=== PATIENT | male | born 1970 | race Caucasian/White ===

== ENCOUNTER 2018-04-14 06:03 | Inpatient (IN) ==
[2018-04-14] MEDS ORDERED: Albuterol 2.5 MG/3 ML NEBULIZER IH ONE (06:52)
[2018-04-14] MEDS ORDERED: Albuterol 2.5 MG/3 ML NEBULIZER ONE (06:57)
[2018-04-14] MEDS ORDERED: Ringers Solution, Lactated 1,000 ML IVC SCH ×2 (07:00→11:51)
[2018-04-14] MEDS ORDERED: Lidocaine -MPF 2% 2 ML VIAL ONE (07:16)
[2018-04-14] MEDS ORDERED: Dexamethasone 4 MG/ML VIAL ONE (07:16)
[2018-04-14] MEDS ORDERED: Ondansetron 4 MG/2 ML VIAL ONE (07:16)
[2018-04-14] MEDS ORDERED: Lidocaine -MPF 4% 5 ML AMPUL ONE (07:16)
[2018-04-14] MEDS ORDERED: *HR* Rocuronium Bromide 50 MG/5 ML VIAL ONE (07:16)
[2018-04-14] MEDS ORDERED: *HR* Midazolam HCl 2 MG/2 ML VIAL ONE (07:20)
[2018-04-14] MEDS ORDERED: *HR* FentaNYL (PF) 100 MCG/2 ML VIAL ONE (07:20)
[2018-04-14] MEDS ORDERED: *HR* Propofol 200 MG/20 ML VIAL IVP ONE (07:21)
[2018-04-14] MEDS ORDERED: *HR* Remifentanil 1 MG VIAL IVP ONE (08:01)
--- NOTE | 2018-04-14 08:02 | History & Physical Report ---
Date of Encounter: 04/14/18 Time of Encounter: 08:01 24 Hour HP Update - Instructions Instructions: If the History and Physical is less than 30 days old and was completed prior to A.M. admission and or procedure and has NOT been updated on calendar day of procedure please complete this update prior to performing procedure. - Update Patient reports changes in Medical Condition: No Changes in examination, assessment, or condition: No Changes in Medication: No Preop tests/diagnostics Reviewed: Yes Pre-Op MRSA Screen: Positive, Vancomycin for Prophylaxis Surgery Remains Indicated: Yes Consent for Planned Operative Procedure(s) Verified: Yes - Pre-Operative Checklist Preoperative Checklist Indicated: No Prophylactic Antibiotic Ordered: Yes Home Medications Include Beta Maday: No Beta Maday Taken Today (Day of Surgery): No Beta Maday Taken Yesterday (Day Prior to Surgery): No Is VTE Prophylaxis Indicated?: Yes
--- NOTE | 2018-04-14 08:04 | Anesthesia Evaluation PreOp ---
Date of Encounter: 04/14/18 Time of Encounter: 08:02 - Past History Planned Operation: PLIF L4-5 Cardiac History: Denies any Significant Hx Pulmonary History: Smoker (30+ years), Snore IN STORE DEMONSTRATOR History: Other (chronic back pain) Other Medical History: Denies Any Significant HX Anesthesia History: No Prior Anesthetic Complications, Past Anesthesia Alcohol Use: none Drug use: none Medications and Allergies Acetaminophen [Tylenol] 1,000 mg PO Q6HR PRN 04/14/18 [History] Allergy/AdvReac Type Severity Reaction Status Date / Time No Known Allergies Allergy Verified 04/14/18 07:02 - Meds/Allergy Pre-op Review Medications Reviewed: Yes Allergies Reviewed: Yes Beta Blockers on Current Med List: No Anesthesia Results - Labs Laboratory Tests 04/07/18 04/07/18 04/07/18 11:00 11:00 11:00 WBC 8.9 Hgb 14.4 Hct 43.0 Plt Count 340 PT 12.6 H INR 1.1 APTT 31.6 Sodium 139 Potassium 4.1 BUN 6 Creatinine 0.83 Anesthesia Exam O2 Sat Height 1.78 m Height 1.78 m Weight 72.575 kg Weight 72.575 kg O2 Sat by Pulse Oximetry 97 O2 Sat by Pulse Oximetry 97 Vital Signs Temp Pulse Resp BP Pulse Ox 97.7 F 74 18 123/62 97 04/14/18 06:20 04/14/18 06:20 04/14/18 06:20 04/14/18 06:20 04/14/18 06:20 Height: 5'10" Weight: 160 lbs NPO (# of Hours): 8 Pain Scale: 8 (back) Pain Scale Used: Numeric (1 - 10) - HEENT Pupil (Motor): EOMI Mallampati: II Teeth: Normal (chipped right upper molar) Oral Opening: Greater than 3 - IN STORE DEMONSTRATOR LOC: Oriented IN STORE DEMONSTRATOR Motor: Normal RUE, Normal LUE, Normal LLE, Normal Face, Deficit RLE IN STORE DEMONSTRATOR Sensory: Normal: RUE, LUE, LLE, Face, Deficit: RLE - Cardiac Rhythm: Regular Murmur: None - Pulmonary Breath Sounds: bilateral Clear Respiratory Effort: Symmetrical Anesthesia Assess/Plan ASA Score: 2 Level of consciousness: Cooperative, Oriented, Tranquil Anesthetic Plan: General Monitoring Plan: Standard Monitors Recovery Plan: PACU
[2018-04-14] MEDS ORDERED: Bacitracin 50,000 UNIT, Polymyxin B Sulfate 500,000 UNIT, Sodium Chloride IRRigation 1,... IR ONE (08:15)
[2018-04-14] MEDS ORDERED: *HR* OxyCODONE Immed Rel 5 MG TABLET PO PRN (08:16)
[2018-04-14] MEDS ORDERED: Clindamycin 900 MG/50 ML 900 MG/50 ML IV.SOLN IVPB ONE (08:52)
[2018-04-14] MEDS ORDERED: Acetaminophen IV 1,000 MG/100 ML INFUS..BTL ONE (08:52)
[2018-04-14] MEDS ORDERED: *HR* PHENYLEPHRINE 1,000 MCG/10 ML SYRINGE IVP ONE (09:18)
[2018-04-14] MEDS ORDERED: EPHEDrine 50 MG/ML VIAL ONE (09:37)
[2018-04-14] MEDS ORDERED: Neostigmine Methylsulfate 3 MG/3 ML SYRINGE ONE (09:54)
[2018-04-14] MEDS ORDERED: *HR* HYDROMORPHONE 2 MG/ML VIAL ONE (10:28)
--- NOTE | 2018-04-14 10:43 | Orthopedic Operative Note ---
Date of procedure: 04/14/18 Pre-op diagnosis: Lumbar stenosis, lumbar radiculopathy, right foot drop Post-op diagnosis: same Operation/Findings: Posterior lumbar interbody fusion L4-L5:The patient successfully underwent general endotracheal anesthesia. The patient was given antibiotics prior to the start of the procedure. Compression boots and stockings were used for deep vein thrombosis prophylaxis. A King catheter was placed. Leads for neuro monitoring were placed on the upper and lower extremities. This included the cranium. The neuro monitoring personnel confirmed there were satisfactory readings prior to the start of the procedure. The patient was turned prone on the Bobby table. The back was prepped and draped in the usual sterile fashion. An incision was was marked and centered over the involved levels in the mid line. The incision was deepened through the lumbar fascia. Bovie cautery and Virgen elevators were used to reflect the paraspinal musculature at the lateral extent of the transverse processes of the involved L4 and L5 levels. Rupa clamps were placed over the L4 and L5 spinous processes. An intraoperative lateral fluoroscopy graft was obtained. A conversation was held between the surgeon and radiologist and both confirmed we had the correct operative levels. We then placed pedicle screws in standard fashion with the aid of fluoroscopy and anatomic landmarks. Briefly a starter awl was used. A gearshift was subsequently used to enter the banquet pilot hole via a transpedicular route into the vertebral body. The banquet pilot hole was tapped with an undersized instrument, and subsequently four 6.5 x 45 mm pedicle screws were placed jesika aterally at the indicated L4 and L5 levels. The screws were tested with the aid of the neurologic monitoring staff via pedicle screw stimulation. All reading suggested there was no significant cortical wall breech. The screws were also evaluated fluoro- graphically and appeared to be in satisfactory position. We then turned our attention to the decompression portion of the procedure. We removed the supraspinous and interspinous ligaments and subsequently the insertion of the ligamentum flavum on the undersurface of the proximal L4 lamina was dislodged with a curette. We then removed the ligamentum flavum as well as undercut the facets at this L4-L5 level to decompress the lateral recesses. We also performed a L4 laminectomy. After the decompression, which was over and above that which was required to place the interbody graft, the foramen and traversing roots at this L4-L5 level were found to be free and patent. We also took part of the medial facets at L4-5 in order to aid in the decompression. We then protected the neural elements including the thecal sac and traversing nerve root on the right with a dural retractor. We made an annulotomy into the L4-L5 disc space and then removed entire disc material using Pituitary instruments. We trialed various size grafts after the endplates were prepared for graft insertion. A 10 x 26 enter body graft fit well within the L4-L5 disc space. We obtained some bone from the right posterior superior iliac spine through us a separate incision and combined with this with the bone which we had saved from the laminectomy portion of the procedure. This autograft bone was first placed in the anterior portion of the L4-L5 disc space and additional bone was placed within the interbody graft spacer. We then placed the interbody graft spacer obliquely across the disc space towards the midline while protecting the neural elements with a root retractor. When the graft was found to be in satisfactory position the inner tube inserter was removed. We then copiously irrigated the wound. We then decorticated the L4-L5 transverse processes as well as the facet joints of the involved L4 and L5 levels to aid in the posterolateral fusion. We placed autograft bone in the lateral gutters over these regions. We then placed rods within the screw heads of the involved L4 and L5 levels and first locked the distal screws and then subsequently locked the proximal screws. We then closed the wound in layers with 1 Vicryl for the fascia, 2-0 Vicryl. Subcutaneous tissue, and Dermabond was used for skin closure. Sterile dressings were placed over the wound. The patient was turned supine on a hospital bed and extubated. All sponge instruments and needle counts were correct at the end of the procedure. The patient tolerated the procedure well without complications. Anesthesia: GETA Surgeon: Dwayne Barraza Jr Was there an autopsy assistant present: No Estimated blood loss (cc): 100 Specimen: None Condition: stable Disposition: PACU
[2018-04-14] MEDS: *HR* HYDROmorphone (PF) 1 MG/ML SYRINGE IVP PRN ×2 (11:02→11:07)
--- NOTE | 2018-04-14 11:26 | Anesthesia Evaluation Post Op ---
Date of Encounter: 04/14/18 Time of Encounter: 11:26 - Vital Signs Vital Signs: Vital Signs/O2 Sat/Glucose, Most Recent Temp Pulse Resp BP Pulse Ox 98.0 F 87 16 130/71 95 04/14/18 11:24 04/14/18 11:24 04/14/18 11:24 04/14/18 11:24 04/14/18 11:24 - Lungs Lungs: Clear Ascult./Percussion - Airway Airway: Non-obstructed - Cardiovascular Regular Rate - Mental Status Mental Status: Alert & Oriented, Answers Appropriately - Pain Pain Scale: 0 Pain Scale used: Numeric (1 - 10) - Nausea Vomiting Nausea Vomiting: Not Present - Hydration Hydration: NPO - Discharge PostOp Status: Transfer Patient to floor
[2018-04-14] MEDS ORDERED: Acetaminophen 325 MG TABLET PO PRN (11:51)
[2018-04-14] MEDS ORDERED: *HR* HYDROcodone/Acet 5/325 mg TABLET PO PRN (11:51)
[2018-04-14] MEDS ORDERED: Ondansetron 4 MG/2 ML VIAL IVP PRN (11:51)
[2018-04-14] MEDS ORDERED: Naloxone 0.4 MG/ML INJ IVP PRN (11:51)
[2018-04-14] MEDS: *HR* OxyCODONE Immed Rel 5 MG TABLET PO PRN ×3 (12:12→21:12)
[2018-04-14] MEDS: *HR* HYDROcodone/Acet 5/325 mg TABLET PO PRN (23:27)
[2018-04-15] MEDS: *HR* OxyCODONE Immed Rel 5 MG TABLET PO PRN ×4 (02:56→22:57)
--- NOTE | 2018-04-15 08:52 | Orthopedics Progress Note ---
Date of Encounter: 04/15/18 Time of Encounter: 08:35 Subjective Principal diagnosis: s/p kypho Interval history: Date of procedure: 04/14/18 Pre-op diagnosis: Lumbar stenosis, lumbar radiculopathy, right foot drop Post-op diagnosis: same Operation/Findings: Posterior lumbar interbody fusion L4-L5 The patient is without complaints. Patient ambulating with with therapy Afebrile vital signs are stable. Dressing is clean dry and intact. Neurovascularly intact with regard to bilateral lower extremities. Fires all upper and lower extremity motor groups. Assessment :stable. Plan mobilize ,continue analgesics, discharge planning. Vital Signs Temp Pulse Resp BP Pulse Ox 04/15/18 06:30 98.5 F 67 16 118/74 96 04/15/18 04:03 98.3 F 61 16 114/68 95 04/14/18 22:41 98.3 F 73 17 123/74 97 04/14/18 19:08 98.9 F 84 17 113/64 95 04/14/18 13:44 98.2 F 99 16 130/68 95 04/14/18 12:26 98.0 F 79 16 114/69 91 04/14/18 12:02 97.9 F 91 12 133/74 95 04/14/18 11:33 97.9 F 81 12 124/73 93 04/14/18 11:24 98.0 F 87 16 130/71 95 04/14/18 11:14 98.2 F 87 16 126/73 96 04/14/18 11:04 98.0 F 90 16 130/61 98 04/14/18 10:54 98.0 F 97 16 138/73 100 Intake and Output 04/14/18 04/15/18 04/15/18 23:59 07:59 15:59 Intake Total 940 / 940 Output Total 1949 1600 / 1600 Balance -1010 / -1010 -1600 / -1600 Intake: IV Fluids 100 / 100 Ancef 2,000 MG In 0.9 % Sodium 100 / 100 Chloride 100 ML @ 200 mls/hr IVPB Q8HR [facility] Rx#:[id number] Oral 840 / 840 Output: Catheter 1949 1600 / 1600 Urethral (King) 550 / 550 Other: Meal Dinner Percent of Meal Consumed 70% Objective Vital signs: Vital Signs Temp Pulse Resp BP Pulse Ox 04/15/18 06:30 98.5 F 67 16 118/74 96 04/15/18 04:03 98.3 F 61 16 114/68 95 04/14/18 22:41 98.3 F 73 17 123/74 97 04/14/18 19:08 98.9 F 84 17 113/64 95 04/14/18 13:44 98.2 F 99 16 130/68 95 04/14/18 12:26 98.0 F 79 16 114/69 91 04/14/18 12:02 97.9 F 91 12 133/74 95 04/14/18 11:33 97.9 F 81 12 124/73 93 04/14/18 11:24 98.0 F 87 16 130/71 95 04/14/18 11:14 98.2 F 87 16 126/73 96 04/14/18 11:04 98.0 F 90 16 130/61 98 04/14/18 10:54 98.0 F 97 16 138/73 100 Intake and Output 04/14/18 04/15/18 04/15/18 23:59 07:59 15:59 Intake Total 940 / 940 Output Total 1949 1600 / 1600 Balance -1010 / -1010 -1600 / -1600 Intake: IV Fluids 100 / 100 Ancef 2,000 MG In 0.9 % Sodium 100 / 100 Chloride 100 ML @ 200 mls/hr IVPB Q8HR [facility] Rx#:[id number] Oral 840 / 840 Output: Catheter 1949 1600 / 1600 Urethral (King) 550 / 550 Other: Meal Dinner Percent of Meal Consumed 70% Consult Discharge Plan - Plan Referrals: Batsheva Mcdonald, DRILLER OPERATOR [Primary Care Provider] -
[2018-04-15] MEDS: *HR* HYDROcodone/Acet 5/325 mg TABLET PO PRN ×2 (12:07→21:06)
[2018-04-16] MEDS: *HR* OxyCODONE Immed Rel 5 MG TABLET PO PRN ×3 (05:26→15:28)
--- NOTE | 2018-04-16 14:11 | Discharge Summary ---
Orders not resulted at time of discharge: Pending orders 04/14/18 XR fluoroscopy <1 hr [XR] Routine 04/16/18 13:02 XR lumbar spine 2-3V [XR] Routine 04/17/18 08:30 XR lumbar spine 2-3V [XR] Routine Date of Encounter: 04/16/18 Time of Encounter: 12:00 - Hospital Course Hospital course: Mr. Pickett is a 47 year old male POD#1 Date of procedure: 04/14/18 Pre-op diagnosis: Lumbar stenosis, lumbar radiculopathy, right foot drop Post-op diagnosis: same Operation/Findings: Posterior lumbar interbody fusion L4-L5 The patient had an uneventful postoperative course. Progressed from intravenous analgesic needs to oral analgesic needs only. Remained neurovascularly intact and mobilized satisfactorily. All intraoperative and/or postoperative radiographic studies were satisfactory. Patient is discharged with plan for rehabilitation and follow-up in 2 weeks post discharge on analgesic medication and patient's home medications. Vital Signs Temp Pulse Resp BP Pulse Ox 04/16/18 12:41 98.1 F 78 16 114/74 98 04/16/18 06:43 98.5 F 76 14 109/68 96 04/15/18 23:05 98.6 F 75 17 121/70 96 04/15/18 18:47 98.7 F 76 17 118/66 97 04/15/18 17:26 98.6 F 77 18 115/64 98 Intake and Output 04/15/18 04/16/18 04/16/18 23:59 07:59 15:59 Intake Total 200 / 200 Balance 200 / 200 Intake: Oral 200 / 200 Other: # Voids 1 1 2 - Time Spent with Patient Total time spent providing and/or coordinating discharge services: - Discharge Medications Prescriptions: OxyCODONE Immed Rel [Roxicodone 5 MG] 5 mg PO Q6HR PRN 7 Days #28 tablet PRN Reason: Severe Pain Docusate Sodium [Colace] 100 mg PO BID 5 Days #10 capsule Home Medications: Acetaminophen [Tylenol] 1,000 mg PO Q6HR PRN 04/14/18 [History] Docusate Sodium [Colace] 100 mg PO BID 5 Days #10 capsule 04/16/18 [Rx] OxyCODONE Immed Rel [Roxicodone 5 MG] 5 mg PO Q6HR PRN 7 Days #28 tablet 04/16/18 [Rx] Allergies/Adverse Reactions: Allergy/AdvReac Type Severity Reaction Status Date / Time No Known Allergies Allergy Verified 04/14/18 07:02 Date of admission: 04/14/18 11:22 Primary care physician: Batsheva Mcdonald, Consults: 04/14/18 11:51 Consult to Physical Therapy [CONS] Routine Comment: Evaluate, develop and implement POC Reason for Consult: Postoperative rehabilitation Does patient have active BEDREST order?: No Is patient medically & hemodynamically stable?: Yes Patient assessed for mobility or mobilized this visit?: No Consult to Spine Navigator [CONS] [CONS] Routine Discharging clinician: Dwayne Barraza Jr Anticipated date of discharge: 04/16/18 - VTE Documentation of Mechanical Device: Graduated compression elastic hosiery - Impressions ITS Impressions Lumbar Spine X-Ray 04/14/18 00:00 IMPRESSION: Anatomic alignment status post L4-L5 posterior fusion D/ / Wang Galvin MD / Wang Galvin MD Interpreting Provider: Wang Galvin MD - Patient Status Disposition: Home Health Service Condition: Good Functional capacity at discharge: uses cane/walker Overall status at discharge: patient is progressing back to baseline - Discharge Instructions Follow Up With: Batsheva Mcdonald, INS[employer]ATION [employer]GER [Primary Care Provider] - - Diet and Activity Activity: as per physical therapy Diet: advance to your usual diet
[2018-04-16] MEDS: *HR* HYDROcodone/Acet 5/325 mg TABLET PO PRN (16:49)
[2018-04-16 19:22] VITALS: BP 110/65
== END 2018-04-16 20:10 | disposition home health service (06) | DRG 304 ==
LOC: SAMDAY 06:03 → 3NENU 11:22
PROVIDERS: ADMIT Orthopaedic Surgery Orthopaedic Surgery of the Spine; ATTEND Orthopaedic Surgery Orthopaedic Surgery of the Spine